=== PATIENT | female | born 1990 | race Caucasian/White ===

== ENCOUNTER 2016-02-27 08:01 | Outpatient (CLI) ==
[2016-01-01 13:04] VITALS: BMI 26.4
[2016-02-27 08:36] LABS: GTT FASTING URINE NEGATIVE (NEGATIVE)
[2016-02-27 08:40] LABS: GLUCOSE,FASTING 79 mg/dL (70-121)
[2016-02-27 10:09] LABS: GLUCOSE 30 MINUTE 139 mg/dL (70-121)
[2016-02-27 10:22] LABS: GLUCOSE 30 MINUTE URINE NEGATIVE (NEGATIVE)
[2016-02-27 10:52] LABS: GLUCOSE 2 HR URINE NEGATIVE (NEGATIVE)
[2016-02-27 11:46] LABS: GLUCOSE 3 HOUR URINE NEGATIVE (NEGATIVE)
== END 2016-02-27 08:02 | disposition home or self-care (01) ==
LOC: LAB 08:01
PROVIDERS: ATTEND Obstetrics & Gynecology
DX: O99.810 Abnormal glucose complicating pregnancy (principal)
CPT/HCPCS: 36415; 82951

== ENCOUNTER 2016-08-19 22:57 | Emergency (ER) ==
[2016-08-19 23:04] VITALS: BP 118/78; TEMP 98.7; BMI 24.3
[2016-08-19] MEDS ORDERED: MORPHINE 2 MG/ML SYRINGE IM STA (23:14)
[2016-08-19] MEDS ORDERED: ZOFRAN 4 MG/2 ML IM STA (23:14)
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
[2016-08-19 23:20] LABS: URINE PREGNANCY INTERNAL QC INTERNAL QC VALID
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
== END 2016-08-20 01:00 | disposition home or self-care (01) ==
LOC: ED 22:57
DX: S59.911A Unspecified injury of right forearm, initial encounter (principal); S09.90XA Unspecified injury of head, initial encounter; S80.211A Abrasion, right knee, initial encounter; S00.83XA Contusion of other part of head, initial encounter; V86.99XA Unspecified occupant of other special all-terrain or other off-road motor vehicle injured in nontraffic accident, initial encounter; F17.210 Nicotine dependence, cigarettes, uncomplicated
CPT/HCPCS: 81025; 96372; 99283

== ENCOUNTER 2016-10-01 16:19 | Outpatient (CLI) | END 2016-10-01 16:20 | disposition home or self-care (01) | LOC: LAB 16:19 | PROVIDERS: ATTEND Nurse Practitioner Family | DX: Z20.2 Contact with and (suspected) exposure to infections with a predominantly sexual mode of transmission (principal) | CPT/HCPCS: 87800 ==

== ENCOUNTER 2016-10-31 10:25 | Emergency (ER) ==
[2016-10-31 10:35] VITALS: BP 121/86; TEMP 99; BMI 23.6
[2016-10-31] MEDS ORDERED: TORADOL IM STA (10:56)
[2016-10-31 11:18] LABS: BASOPHILS % (AUTO) 0.3 % (0.0-3.0); EOSINOPHILS # (AUTO) 0.2 K/ul (0.0-0.7); HEMATOCRIT 37.2 % (37.0-47.0); HEMOGLOBIN 12.8 g/dl (12.0-16.0); IMMATURE GRANULOCYTE % (AUTO) 0.4 % (0.0-5.0); LYMPHOCYTES # (AUTO) 3.9 K/uL (0.60-3.4); LYMPHOCYTES % (AUTO) 33.1 (10.0-50.0); MEAN CORPUSCULAR HEMOGLOBIN 30.1 pg (27.0-31.0); MEAN CORPUSCULAR HGB CONC 34.4 (31.8-35.4); MEAN CORPUSCULAR VOLUME 87.5 fl (81.0-99.0); MONOCYTES # (AUTO) 0.6 K/uL (0.4-2.0); NEUTROPHILS # (AUTO) 6.9 K/ul (2.0-6.9); NEUTROPHILS % (AUTO) 59.2; PLATELET COUNT 179 10^3/uL (140-440); RED BLOOD COUNT 4.25 10^6/ul (4.20-5.40)
[2016-10-31 11:22] LABS: BILIRUBIN,URINE Negative (NEGATIVE); KETONES,URINE Negative (NEGATIVE); LEUKOCYTE ESTERASE ,URINE Negative (NEGATIVE); NITRITE,URINE Negative (NEGATIVE); PROTEIN,URINE Negative (NEGATIVE); URINE, BLOOD Negative (NEGATIVE)
[2016-10-31 11:24] LABS: ADD URINE MICROSCOPIC NO
[2016-10-31 11:31] LABS: URINE PREGNANCY INTERNAL QC INTERNAL QC VALID
[2016-10-31 11:41] LABS: ALBUMIN 3.8 g/dL (3.4-5.0); ALBUMIN/GLOBULIN RATIO 1.36; ANION GAP 12.7; BILIRUBIN,TOTAL 1.65 mg/dL (0.00-1.20); BUN/CREATININE RATIO 15.18; CREATININE 0.79 mg/dL (0.60-1.30); POTASSIUM 3.7 mmol/L (3.5-5.10); TOTAL PROTEIN 6.6 g/dL (6.4-8.2)
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
--- NOTE | 2016-10-31 12:42 | ED.PDOC ---
General ED Provider: Dr. FELY CASILLAS Chief Complaint: Back Pain Stated Complaint: left flank pain Time Seen by Physician: 10:30 (no trauma seen with enedelia villa RN at all times) Mode of Arrival: Walk-In Information Source: Patient Exam Limitations: No limitations Nursing and Triage Documentation Reviewed and Agree: Yes Musculoskeletal Complaint Exam - Back Pain Complaint/Exam Mechanism of Injury: Reports: No known trauma, Other (NURSE AT BEDSIDE AT ALL TIMES ) Onset/Duration: 2 days Symptoms Are: Still present Timing: Constant Episodes Lasting: Days Initial Severity: Mild Current Severity: Mild Location: Reports: Discrete Character: Reports: Aching Aggravating: Reports: Movements, Lifting, Bending, Walking Alleviating: Reports: Position Associated Signs and Symptoms: Reports: Flank pain (LEFT). Denies: Swelling, Redness, Bruising, Fever, Weakness, Numbness, Tingling, Abdominal pain, Bladder incontinence, Bowel incontinence, Weight loss, Pain with weight bearing TAD Risk Factors: Reports: None AAA Risk Factors: Reports: None Cauda Equina Risk Factors: Reports: None Epidural Abcess Risk Factors: Reports: None Related Surgical History: Reports: None Focal Tenderness: No Paraspinal Muscle Tenderness: No Paraspinal Muscle Spasm: No Scoliosis: No Lordosis: No Kyphosis: No SLR Test: Right Negative, Left Negative Hip Motion Testing Pain: Right Negative, Left Negative Focal Weakness: Present: None Focal Sensory Loss: Present: None Gait: Present: Normal Differential Diagnoses: Strain, Sprain Review of Systems - Review Of Systems Constitutional: Reports: No symptoms Eyes: Reports: No symptoms Ears, Nose, Mouth, Throat: Reports: No symptoms Respiratory: Reports: No symptoms Cardiac: Reports: No symptoms GI: Reports: No symptoms : Reports: No symptoms Musculoskeletal: Reports: Back pain Skin: Reports: No symptoms Neurological: Reports: No symptoms Endocrine: Reports: No symptoms Hematologic/Lymphatic: Reports: No symptoms All Other Systems: Reviewed and Negative Past Medical History - Past Medical History Previously Healthy: Yes Endocrine: Reports: None Cardiovascular: Reports: None Respiratory: Reports: None Hematological: Reports: None Gastrointestinal: Reports: Gallstones Genitourinary: Reports: None Neuro/Psych: Reports: Migraine, Other (Sycope ) Musculoskeletal: Reports: None Cancer: Reports: None Last Menstrual Period: 2 weeks - Surgical History General Surgical History: Reports: Cholecystectomy - Family History Family History: Reports: None - Social History Smoking Status: Current some day smoker Hx Substance Use: No Alcohol Screening: None - Immunizations Tetanus Shot up to Date: Yes Physical Exam - Physical Exam Appearance: Well-appearing, No pain distress, Well-nourished Eyes: FLETCHER, EOMI, Conjunctiva clear ENT: Ears normal, Nose normal, Oropharynx normal Respiratory: Airway patent, Breath sounds clear, Breath sounds equal, Respirations nonlabored Cardiovascular: RRR, Pulses normal, No rub, No murmur GI/: Soft, Nontender, No masses, Bowel sounds normal, No Organomegaly Musculoskeletal: Normal strength, ROM intact, No edema, No calf tenderness Skin: Warm, Dry, Normal color Neurological: Sensation intact, Motor intact, Reflexes intact, Cranial nerves intact, Alert, Oriented Psychiatric: Affect appropriate, Mood appropriate Interpretation - Radiology Interpretation Radiology Interpretation By: Radiologist Radiology Results: No acute changes Re-Evaluation - Re-Evaluation Time of Re-Evaluation: 12:00 Status: Improved Vital Signs Stable: Yes Pain Level: 2 Appearance: NAD Lungs: Clear Skin: Warm and Dry Neuro: Alert and Oriented X3 CV: RRR Critical Care Note - Critical Care Note Total Time (mins): 0 Course - Course Hematology/Chemistry: 10/31/16 11:10 10/31/16 11:10 Orders, Labs, Meds: Lab Review 10/31/16 10/31/16 10/31/16 11:10 11:10 11:10 WBC 11.70 H RBC 4.25 Hgb 12.8 Hct 37.2 MCV 87.5 MCH 30.1 MCHC 34.4 RDW Coeff of Nettie 12.4 Plt Count 179 Immature Gran % (Auto) 0.4 Neut % (Auto) 59.2 Lymph % (Auto) 33.1 Dare % (Auto) 5.0 Eos % (Auto) 2.0 Baso % (Auto) 0.3 Immature Gran # (Auto) 0.1 Neut # 6.9 Lymph # 3.9 H Dare # 0.6 Eos # 0.2 Baso # 0.0 Sodium 140 Potassium 3.7 Chloride 110 H Carbon Dioxide 21 Anion Gap 12.7 BUN 12 Creatinine 0.79 Estimated GFR (MDRD) 89.00 BUN/Creatinine Ratio 15.18 Glucose 87 Calcium 9.0 Total Bilirubin 1.65 H AST 12 L ALT 12 Alkaline Phosphatase 69 Total Protein 6.6 Albumin 3.8 Globulin 2.8 Albumin/Globulin Ratio 1.36 Urine Color Yellow Urine Clarity Clear Urine pH 6.0 Ur Specific [place] 1.025 Urine Protein Negative Urine Glucose (UA) Negative Urine Ketones Negative Urine Blood Negative Urine Nitrite Negative Urine Bilirubin Negative Urine Urobilinogen 1.0 Ur Leukocyte Esterase Negative Urine Test 10/31/16 11:10 WBC RBC Hgb Hct MCV MCH MCHC RDW Coeff of Nettie Plt Count Immature Gran % (Auto) Neut % (Auto) Lymph % (Auto) Dare % (Auto) Eos % (Auto) Baso % (Auto) Immature Gran # (Auto) Neut # Lymph # Dare # Eos # Baso # Sodium Potassium Chloride Carbon Dioxide Anion Gap BUN Creatinine Estimated GFR (MDRD) BUN/Creatinine Ratio Glucose Calcium Total Bilirubin AST ALT Alkaline Phosphatase Total Protein Albumin Globulin Albumin/Globulin Ratio Urine Color Urine Clarity Urine pH Ur Specific [place] Urine Protein Urine Glucose (UA) Urine Ketones Urine Blood Urine Nitrite Urine Bilirubin Urine Urobilinogen Ur Leukocyte Esterase Urine Test Negative Orders Category Date Time Status CBC W/ AUTO DIFF Stat LAB 10/31/16 11:10 Completed COMPREHENSIVE METABOLIC PANEL Stat LAB 10/31/16 11:10 Completed URINALYSIS C & S IF INDICATED Stat LAB 10/31/16 11:10 Completed URINE Stat LAB 10/31/16 11:10 Completed Ketorolac Tromethamine [Toradol] MEDS 10/31/16 10:56 Discontinued 60 mg IM ONCE STA CT ABDOMEN/PELVIS WO CONTRAST Stat RADS 10/31/16 10:55 Completed Medications Discontinued Medications Generic Name Dose Route Start Last Admin Trade Name Freq PRN Reason Stop Dose Admin Ketorolac Tromethamine 60 mg 10/31/16 10:56 10/31/16 11:03 Toradol IM 10/31/16 10:57 60 mg ONCE STA Administration Vital Signs: Temp Pulse Resp BP Pulse Ox 10/31/16 10:29 99 F 95 H 16 121/86 97 Departure - Departure Time of Disposition: 12:42 (INFORMED ABOUT THE CT AND BLOOD WORK AT DISCHARGE ALISA WAS PRESENT) Disposition: HOME SELF-CARE Discharge Problem: Backache Instructions: Acute Low Back Pain (ED) Condition: Good Pt referred to PMD for follow-up: Yes Additional Instructions: Please call your Family Physician as soon as possible to schedule a follow-up appointment. Allergies/Adverse Reactions: Allergies No Known Allergies Allergy (Verified 10/31/16 10:41) Home Medications: Ambulatory Orders Etonogestrel [Nexplanon] 68 mg SQ ONCE 08/19/16
== END 2016-10-31 12:53 | disposition home or self-care (01) ==
LOC: ED 10:25
DX: M54.9 Dorsalgia, unspecified (principal); R10.9 Unspecified abdominal pain; F17.210 Nicotine dependence, cigarettes, uncomplicated
CPT/HCPCS: 36415; 80053; 81001; 81025; 85025; 96372; 99283

== ENCOUNTER 2016-12-24 13:46 | Emergency (ER) ==
[2016-12-24 13:51] VITALS: BP 121/80; TEMP 100.2; BMI 24.1
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
[2016-12-24 15:00] LABS: FLU INTERNAL QC INTERNAL QC VALID; RAPID FLU A NEGATIVE (NEGATIVE); RAPID FLU B NEGATIVE (NEGATIVE)
== END 2016-12-24 15:18 | disposition home or self-care (01) ==
LOC: ED 13:46
DX: M25.531 Pain in right wrist (principal); J02.9 Acute pharyngitis, unspecified; F17.210 Nicotine dependence, cigarettes, uncomplicated
CPT/HCPCS: 87651; 87804; 87880; 99283

== ENCOUNTER 2017-01-13 10:11 | Emergency (ER) ==
[2017-01-13 10:16] VITALS: BP 116/81; TEMP 97.7; BMI 24.0
[2017-01-13] MEDS ORDERED: DILAUDID 2 MG/ML SYRINGE IM STA (10:39)
[2017-01-13] MEDS ORDERED: ZOFRAN 4 MG/2 ML IM STA (10:40)
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
== END 2017-01-13 11:17 | disposition home or self-care (01) ==
LOC: ED 10:11
DX: M54.5 Low back pain (principal); F17.210 Nicotine dependence, cigarettes, uncomplicated; X50.1XXA Overexertion from prolonged static or awkward postures, initial encounter
CPT/HCPCS: 96372; 99283

== ENCOUNTER 2017-01-16 12:21 | Outpatient (CLI) ==
--- NOTE | 2017-01-16 14:13 | DI ---
Exam: Three x-rays of the thoracic spine. Comparison: CT abdomen pelvis performed 10/31/2016. Reason for exam: Pain in thoracic spine. FINDINGS: No acute fracture or listhesis. There is a normal appearing thoracic kyphotic curve. The superiormost portions of the thoracic and inferior most portions of the cervical spine are not well seen secondary to summation artifact. Impression: No acute fracture or listhesis in the imaged portions of the thoracic spine
--- NOTE | 2017-01-16 14:15 | DI ---
Exam: Five x-rays of the lumbar spine. Comparison: CT abdomen pelvis performed 10/31/2016. Reason for exam: Low back pain. Finding: No acute fracture or listhesis. The vertebral body and intervertebral body disc space heights are we ll maintained. There is a normal appearing lumbar lordotic curve. Impression: No acute fracture or listhesis in the lumbar spine.
== END 2017-01-16 12:22 | disposition home or self-care (01) ==
LOC: RAD 12:21
PROVIDERS: ATTEND Nurse Practitioner Family
DX: M54.6 Pain in thoracic spine (principal); M54.5 Low back pain

== ENCOUNTER 2017-02-09 15:04 | Emergency (ER) ==
[2017-02-09 15:14] VITALS: BP 114/79; TEMP 98.2; BMI 23.6
[2017-02-09] MEDS ORDERED: NORCO 7.5-325 PO STA (15:19)
[2017-02-09] MEDS ORDERED: DOXYCYCLINE HYCLATE PO STA (15:19)
--- NOTE | 2017-02-09 15:23 | ED.PDOC ---
General ED Provider: Dr. AQUILINO MATHEW-ER Chief Complaint: Non-specific Complaint Stated Complaint: i had my belly button pierced a few days ago--now is red and draining Time Seen by Physician: 15:10 Mode of Arrival: Walk-In Information Source: Patient Exam Limitations: No limitations Primary Care Provider: JOSE C [facility] Nursing and Triage Documentation Reviewed and Agree: Yes Reviewed sepsis parameters & appropriate labs ordered?: Yes System Inflammatory Response Syndrome: Not Applicable Sepsis Protocol: For patient's 13 years and over: Temp is 96.8 and below OR 101 and greater Pulse >90 BPM Resp >20/minute Acutely Altered Mental Status Are patient's symptoms suggestive of a new infection, such as: -Pneumonia -Skin, Soft Tissue -Endocarditis -UTI -Bone, Joint Infection -Implantable Device -Acute Abdominal Infection -Wound Infection -Meningitis -Blood Stream Catheter Infection -Unknown Skin Complaint Exam - Skin/Soft Tissue Complaint/Exam Onset/Duration: 24 hrs Symptoms Are: Still present Timing: Constant Initial Severity: Mild Current Severity: Mild Location: periumbilical Character: Reports: Redness, Painful Aggravating: Reports: None Alleviating: Reports: None Associated Signs and Symptoms: Reports: Drainage, Tenderness. Denies: Fever, Chills, Itching, Bruising, Red streaks, Joint swelling Related Surgical History: Reports: None Recent Exposure to Others w/Similar Symptoms: Yes Skin Findings: Present: Erythema, Pustules Joint Tenderness Present: No Differential Diagnoses: Abscess, Cellulitis Review of Systems - Review Of Systems Constitutional: Reports: No symptoms Eyes: Reports: No symptoms Ears, Nose, Mouth, Throat: Reports: No symptoms Respiratory: Reports: No symptoms Cardiac: Reports: No symptoms GI: Reports: No symptoms : Reports: No symptoms Musculoskeletal: Reports: No symptoms Skin: Reports: Rash Neurological: Reports: No symptoms Endocrine: Reports: No symptoms Hematologic/Lymphatic: Reports: No symptoms All Other Systems: Reviewed and Negative Past Medical History - Past Medical History Previously Healthy: Yes Endocrine: Reports: None Cardiovascular: Reports: None Respiratory: Reports: None Hematological: Reports: None Gastrointestinal: Reports: Gallstones Genitourinary: Reports: None Neuro/Psych: Reports: Migraine, Other (Sycope ) Musculoskeletal: Reports: None Cancer: Reports: None Last Menstrual Period: 1 day - Surgical History General Surgical History: Reports: Cholecystectomy - Family History Family History: Reports: None - Social History Smoking Status: Current some day smoker Hx Substance Use: No Alcohol Screening: None Lives: With family Physical Exam - Physical Exam Appearance: Well-appearing, No pain distress, Well-nourished Eyes: FLETCHER ENT: Ears normal, Nose normal, Oropharynx normal Neck: Supple Respiratory: Airway patent, Breath sounds clear, Breath sounds equal, Respirations nonlabored Cardiovascular: RRR, Pulses normal, No rub, No murmur GI/: Soft, Nontender, No masses, Bowel sounds normal, No Organomegaly Musculoskeletal: Normal strength, ROM intact, No edema, No calf tenderness Skin: Warm, Dry, Normal color Neurological: Sensation intact, Motor intact, Reflexes intact, Cranial nerves intact, Alert, Oriented Psychiatric: Affect appropriate, Mood appropriate Critical Care Note - Critical Care Note Total Time (mins): 0 Course - Course Orders, Labs, Meds: Orders Category Date Time Status WOUND CULTURE Stat LAB 02/09/17 15:40 Received Doxycycline Hyclate MEDS 02/09/17 15:19 Discontinued 100 mg PO ONCE STA Hydrocodone Bit/Acetaminophen [[place] 7.5-325] MEDS 02/09/17 15:19 Discontinued 1 tab PO ONCE STA Medications Discontinued Medications Generic Name Dose Route Start Last Admin Trade Name Freq PRN Reason Stop Dose Admin Acetaminophen/Hydrocodone Bitart 1 tab 02/09/17 15:19 02/09/17 15:24 [place] 7.5-325 PO 02/09/17 15:20 1 tab ONCE STA Administration Doxycycline Hyclate 100 mg 02/09/17 15:19 02/09/17 15:24 Doxycycline Hyclate PO 02/09/17 15:20 100 mg ONCE STA Administration Vital Signs: Temp Pulse Resp BP Pulse Ox 02/09/17 15:05 98.2 F 78 20 114/79 98 Departure - Departure Time of Disposition: 15:22 Disposition: HOME SELF-CARE Discharge Problem: Cellulitis Qualifiers: Site of cellulitis: trunk Site of cellulitis of trunk: abdominal wall Qualified Code(s): L03.311 - Cellulitis of abdominal wall Instructions: Cellulitis (ED) Condition: Good Pt referred to PMD for follow-up: Yes Additional Instructions: doxycycline 100mg q 12hrs #14--off work--f/u wtih pcp this week for recheck of infection and check on culture results Allergies/Adverse Reactions: Allergies No Known Allergies Allergy (Verified 01/13/17 10:15) Home Medications: Ambulatory Orders Etonogestrel [Nexplanon] 68 mg SQ ONCE 08/19/16 Disposition Discussed With: Patient
== END 2017-02-09 15:39 | disposition home or self-care (01) ==
LOC: ED 15:04
DX: L03.311 Cellulitis of abdominal wall (principal); S31.135A Puncture wound of abdominal wall without foreign body, periumbilic region without penetration into peritoneal cavity, initial encounter; W26.8XXA Contact with other sharp object(s), not elsewhere classified, initial encounter; F17.210 Nicotine dependence, cigarettes, uncomplicated
CPT/HCPCS: 87070; 87186; 99282

== ENCOUNTER 2017-09-21 09:13 | Emergency (ER) | payer MEDICAID, OTHER ==
[2017-09-21 09:16] VITALS: BP 120/75; TEMP 98.2; BMI 24.3
--- NOTE | 2017-09-21 09:29 | ED.PDOC ---
General ED Provider: Dr. FELY CASILLAS Chief Complaint: Headache Stated Complaint: headache Time Seen by Physician: 09:19 (seen with NURSING STAFF) Mode of Arrival: Walk-In Information Source: Patient Exam Limitations: No limitations [facility] Documentation Reviewed and Agree: Yes Does patient meet sepsis criteria?: No If yes, has appropriate treatment been initiated?: No System Inflammatory Response Syndrome: Not Applicable Sepsis Protocol: For patient's 13 years and over: Temp is 96.8 and below OR 101 and greater Pulse >90 BPM Resp >20/minute Acutely Altered Mental Status Are patient's symptoms suggestive of a new infection, such as: -Pneumonia -Skin, Soft Tissue -Endocarditis -UTI -Bone, Joint Infection -Implantable Device -Acute Abdominal Infection -Wound Infection -Meningitis -Blood Stream Catheter Infection -Unknown Neurological Complaint Exam - Headache Complaint/Exam Onset: Gradual Duration: 1 DAY Symptoms Are: Still present Timing: Intermittent Episodes Lasting: Hours Worst Headache Ever: No Initial Severity: Moderate Current Severity: Mild Location: Frontal, Temporal Character: Reports: Typical headache Aggravating: Reports: None Alleviating: Reports: None Associated Signs and Symptoms: Denies: Dizziness, Seizure, Nausea, Vomiting, Sinus pressure, Fever, Neck pain, Neck stiffness, Decreased LOC, Visual changes Related History: Reports: Similar episode Related Surgical History: Reports: None SAH Risk Factors: Reports: None Meningitis Risk Factors: Reports: None SDH Risk Factors: Reports: None Temporal Arteritis Risk Factors: Reports: Female, Normal Head CT Within Last 12 Months: No Fundoscopic Exam: Present: Normal Findings Papilledema Present: No Temporal Artery Tenderness: Present: None Sinus Tenderness: Present: None TMJ Tenderness: Present: None Glascow Coma Scale (see protocol): 15 Meningeal Signs Positive: No ROM Limited In: No Limitiations Focal Weakness: Present: None Focal Sensory Loss: Present: None Gait: Normal Nystagmus Present: No Gag Reflex Present: Yes Frsmof-is-Gowm: Normal Findings Romberg Test Positive: No Babinski Sign: Negative Right, Negative Left Differential Diagnoses: Migraine Review of Systems - Review Of Systems Constitutional: Reports: No symptoms Eyes: Reports: No symptoms Ears, Nose, Mouth, Throat: Reports: No symptoms Respiratory: Reports: No symptoms Cardiac: Reports: No symptoms GI: Reports: No symptoms : Reports: No symptoms Musculoskeletal: Reports: No symptoms Skin: Reports: No symptoms Neurological: Reports: Headache Endocrine: Reports: No symptoms Hematologic/Lymphatic: Reports: No symptoms All Other Systems: Reviewed and Negative Past Medical History - Past Medical History Previously Healthy: Yes Endocrine: Reports: None Cardiovascular: Reports: None Respiratory: Reports: None Hematological: Reports: None Gastrointestinal: Reports: Gallstones Genitourinary: Reports: None Neuro/Psych: Reports: Migraine, Other (Sycope ) Musculoskeletal: Reports: None Cancer: Reports: None Last Menstrual Period: 09/21/17 - Surgical History General Surgical History: Reports: Cholecystectomy - Family History Family History: Reports: None - Social History Smoking Status: Current some day smoker Hx Substance Use: No Alcohol Screening: None Physical Exam - Physical Exam Appearance: Well-appearing, No pain distress, Well-nourished Eyes: FLETCHER, EOMI, Conjunctiva clear ENT: Ears normal, Nose normal, Oropharynx normal Respiratory: Airway patent, Breath sounds clear, Breath sounds equal, Respirations nonlabored Cardiovascular: RRR, Pulses normal, No rub, No murmur GI/: Soft, Nontender, No masses, Bowel sounds normal, No Organomegaly Musculoskeletal: Normal strength, ROM intact, No edema, No calf tenderness Skin: Warm, Dry, Normal color Neurological: Sensation intact, Motor intact, Reflexes intact, Cranial nerves intact, Alert, Oriented Psychiatric: Affect appropriate, Mood appropriate Critical Care Note - Critical Care Note Total Time (mins): 0 Course - Course Vital Signs: Temp Pulse Resp BP Pulse Ox 09/21/17 09:14 98.2 F 71 18 120/75 98 Departure - Departure Time of Disposition: 09:28 Disposition: HOME SELF-CARE Discharge Problem: Headache Instructions: Acute Headache (ED) Condition: Good Pt referred to PMD for follow-up: Yes IPMP verified?: No Additional Instructions: Please call your Family Physician as soon as possible to schedule a follow-up appointment. Prescriptions: Hydrocodone/Acetaminophen [[place] 10-325 Tablet] 1 each PO Q8HR #4 tablet Allergies/Adverse Reactions: Allergies No Known Allergies Allergy (Verified 09/21/17 09:17) Home Medications: Ambulatory Orders Etonogestrel [Nexplanon] 68 mg SQ ONCE 08/19/16 Hydrocodone/Acetaminophen [[place] 10-325 Tablet] 1 each PO Q8HR #4 tablet Disposition Discussed With: Patient
== END 2017-09-21 09:45 | disposition home or self-care (01) ==
LOC: ED 09:13
DX: R51 Headache (principal); F17.210 Nicotine dependence, cigarettes, uncomplicated
CPT/HCPCS: 99282

== ENCOUNTER 2017-12-26 07:24 | Emergency (ER) ==
[2017-12-26 07:29] VITALS: BP 136/77; TEMP 99.3; BMI 23.8
[2017-12-26] MEDS ORDERED: TORADOL IM STA (07:48)
--- NOTE | 2017-12-26 09:07 | CT ---
EXAM: CT abdomen pelvis without contrast HISTORY: Epigastric pain most pronounced on the right with prior cholecystectomy COMPARISON: CT abdomen pelvis 10/31/2016 and 01/15/2015 TECHNIQUE: Serial axial images of the abdomen pelvis were performed from the lung bases through the inferior pelvis without contrast. These were viewed in multiple planes. FINDINGS: The lung bases are clear. Evaluation is limited due to lack of contrast. The liver is unremarkable. The gallbladder has been resected. Adrenal glands are unremarkable. The kidneys are unremarkable. There is no hydronephrosi s or hydroureter. The spleen is unremarkable. The pancreas is normal. The stomach is mildly distended. The small bowel in the abdomen pelvis is unremarkable. The appendi x is normal. The colon is unremarkable. There is no free air, free fluid or lymphadenopathy. The u terus is unremarkable. The ovaries are normal in appearance. The osseous structures are unremarkabl e. IMPRESSION: 1. No acute intra-abdominal or pelvic process to account for patient's symptoms. 2. No obstructive uropathy or visualized renal stone.
--- NOTE | 2017-12-26 09:46 | ED.PDOC ---
General ED Provider: Dr. FELY CASILLAS Chief Complaint: Abdominal Pain Stated Complaint: ABDOMINAL PAIN Time Seen by Physician: 07:30 (SEEN WITH KYLAH AT ALL TIMES ) Mode of Arrival: Walk-In Information Source: Patient Exam Limitations: No limitations Primary Care Provider: SOFIE NOVA Nursing and Triage Documentation Reviewed and Agree: Yes Does patient meet sepsis criteria?: No System Inflammatory Response Syndrome: Not Applicable Sepsis Protocol: For patient's 13 years and over: Temp is 96.8 and below OR 101 and greater Pulse >90 BPM Resp >20/minute Acutely Altered Mental Status Are patient's symptoms suggestive of a new infection, such as: -Pneumonia -Skin, Soft Tissue -Endocarditis -UTI -Bone, Joint Infection -Implantable Device -Acute Abdominal Infection -Wound Infection -Meningitis -Blood Stream Catheter Infection -Unknown GI Complaint Exam - Abdominal Pain Complaint/Exam Onset: Gradual Duration: 3 AM Symptoms Are: Still present Timing: Constant Initial Severity: Moderate Current Severity: Moderate Location of Pain: LUQ, Epigastric Radiates To: Denies: Chest, Back, Flank, LLQ, RLQ, Inguinal Character: Reports: Dull Aggravating: Reports: None Alleviating: Reports: None Associated Signs and Symptoms: Denies: Diaphoresis, Fever, Cough, Chest pain, Dizziness, Back pain, Constipation, Blood in stool, Dysuria, Urinary frequency, Decreased urine output, Decreased appetite, Vaginal bleeding, Vaginal discharge , Nausea, Vomiting, Diarrhea, Sore throat, Decreased activity Related History: Reports: Similar episode AAA Risk Factors: Reports: None Cardiac Risk Factors: Reports: None Ectopic Risk Factors: Reports: None Ovarian Torsion Risk Factors: Reports: None Surgical Obstruction Risk Factors: Reports: None Related Surgical History: Reports: None Patient Rh Status: Unknown Abdominal Findings: Present: None Differential Diagnoses: Appendicitis, Bowel Obstruction, Constipation, Diverticulitis, Gastroenteritis, Renal Colic, Ureteral Stone, UTI Quality Indicators for AMI: EKG in 10min. Quality Indicators for Cardiac Chest Pain: EKG in 10min. Quality Indicator For Non-Traumatic Chest Pain/Syncope: EKG Performed Review of Systems - Review Of Systems Constitutional: Reports: No symptoms Eyes: Reports: No symptoms Ears, Nose, Mouth, Throat: Reports: No symptoms Respiratory: Reports: No symptoms Cardiac: Reports: No symptoms GI: Reports: Abdominal pain : Reports: No symptoms Musculoskeletal: Reports: No symptoms Skin: Reports: No symptoms Neurological: Reports: No symptoms Endocrine: Reports: No symptoms Hematologic/Lymphatic: Reports: No symptoms All Other Systems: Reviewed and Negative Past Medical History - Past Medical History Previously Healthy: Yes Endocrine: Reports: None Cardiovascular: Reports: None Respiratory: Reports: None Hematological: Reports: None Gastrointestinal: Reports: Gallstones Genitourinary: Reports: None Neuro/Psych: Reports: Migraine, Other (Sycope ) Musculoskeletal: Reports: None Cancer: Reports: None Last Menstrual Period: 2 weeks ago - Surgical History General Surgical History: Reports: Cholecystectomy - Family History Family History: Reports: None - Social History Smoking Status: Current some day smoker Hx Substance Use: No Alcohol Screening: None Physical Exam - Physical Exam Appearance: Well-appearing, No pain distress, Well-nourished Eyes: FLETCHER, EOMI, Conjunctiva clear ENT: Ears normal, Nose normal, Oropharynx normal Respiratory: Airway patent, Breath sounds clear, Breath sounds equal, Respirations nonlabored Cardiovascular: RRR, Pulses normal, No rub, No murmur GI/: Soft, Nontender, No masses, Bowel sounds normal, No Organomegaly Musculoskeletal: Normal strength, ROM intact, No edema, No calf tenderness Skin: Warm, Dry, Normal color Neurological: Sensation intact, Motor intact, Reflexes intact, Cranial nerves intact, Alert, Oriented Psychiatric: Affect appropriate, Mood appropriate Critical Care Note - Critical Care Note Total Time (mins): 0 Course - Course Hematology/Chemistry: 12/26/17 08:00 12/26/17 08:00 Orders, Labs, Meds: Lab Review 12/26/17 12/26/17 12/26/17 08:00 08:00 08:00 WBC 8.56 RBC 4.04 L Hgb 12.2 Hct 35.8 L MCV 88.6 MCH 30.2 MCHC 34.1 RDW Coeff of Nettie 12.4 Plt Count 161 Immature Gran % (Auto) 0.2 Neut % (Auto) 56.7 Lymph % (Auto) 34.3 [place] % (Auto) 5.8 Eos % (Auto) 2.8 Baso % (Auto) 0.2 Immature Gran # (Auto) 0.0 Neut # (Auto) 4.8 Lymph # (Auto) 2.9 [place] # (Auto) 0.5 Eos # (Auto) 0.2 Baso # (Auto) 0.0 Sodium 138.0 Potassium 3.92 Chloride 107.9 H Carbon Dioxide 26.5 Anion Gap 7.52 BUN 13.2 Creatinine 0.76 Estimated GFR (MDRD) 93.00 BUN/Creatinine Ratio 17.36 Glucose 97.5 Calcium 8.64 Total Bilirubin 0.67 AST 24.3 ALT 15.4 Alkaline Phosphatase 57.6 Total Protein 6.43 Albumin 3.83 Globulin 2.60 Albumin/Globulin Ratio 1.47 Amylase 58.6 Lipase 47.5 Serum , Qual Negative Urine Color Urine Clarity Urine pH Ur Specific [place] Urine Protein Urine Glucose (UA) Urine Ketones Urine Blood Urine Nitrite Urine Bilirubin Urine Urobilinogen Ur Leukocyte Esterase 12/26/17 08:00 WBC RBC Hgb Hct MCV MCH MCHC RDW Coeff of Nettie Plt Count Immature Gran % (Auto) Neut % (Auto) Lymph % (Auto) [place] % (Auto) Eos % (Auto) Baso % (Auto) Immature Gran # (Auto) Neut # (Auto) Lymph # (Auto) [place] # (Auto) Eos # (Auto) Baso # (Auto) Sodium Potassium Chloride Carbon Dioxide Anion Gap BUN Creatinine Estimated GFR (MDRD) BUN/Creatinine Ratio Glucose Calcium Total Bilirubin AST ALT Alkaline Phosphatase Total Protein Albumin Globulin Albumin/Globulin Ratio Amylase Lipase Serum , Qual Urine Color Yellow Urine Clarity Clear Urine pH 5.5 Ur Specific [place] 1.025 Urine Protein Negative Urine Glucose (UA) Negative Urine Ketones Negative Urine Blood Negative Urine Nitrite Negative Urine Bilirubin Negative Urine Urobilinogen 0.2 Ur Leukocyte Esterase Negative Orders Category Date Time Status AMYLASE Stat LAB 12/26/17 08:00 Completed CBC W/ AUTO DIFF Stat LAB 12/26/17 08:00 Completed COMPREHENSIVE METABOLIC PANEL Stat LAB 12/26/17 08:00 Completed LIPASE Stat LAB 12/26/17 08:00 Completed SERUM Stat LAB 12/26/17 08:00 Completed URINALYSIS C & S IF INDICATED Stat LAB 12/26/17 08:00 Completed Ketorolac Tromethamine [Toradol] MEDS 12/26/17 07:48 Discontinued 60 mg IM ONCE STA CT ABD/PEL WO RENAL STONE PROT Stat RADS 12/26/17 07:46 Completed Medications Discontinued Medications Generic Name Dose Route Start Last Admin Trade Name Freq PRN Reason Stop Dose Admin Ketorolac Tromethamine 60 mg 12/26/17 07:48 12/26/17 08:01 Toradol IM 12/26/17 07:49 60 mg ONCE STA Administration Vital Signs: Temp Pulse Resp BP Pulse Ox 12/26/17 07:25 99.3 F 97 H 20 136/77 95 Departure - Departure Time of Disposition: 09:46 Disposition: HOME SELF-CARE Discharge Problem: Abdominal pain Instructions: Abdominal Pain (ED) Condition: Good Pt referred to PMD for follow-up: Yes IPMP verified?: No Additional Instructions: Please call your Family Physician as soon as possible to schedule a follow-up appointment. Allergies/Adverse Reactions: Allergies No Known Allergies Allergy (Verified 12/26/17 07:29) Home Medications: Ambulatory Orders Etonogestrel [Nexplanon] 68 mg SQ ONCE 08/19/16
== END 2017-12-26 10:01 | disposition home or self-care (01) ==
LOC: ED 07:24
DX: R10.9 Unspecified abdominal pain (principal); F17.210 Nicotine dependence, cigarettes, uncomplicated
CPT/HCPCS: 36415; 74176; 80053; 81001; 82150; 83690; 84703; 85025; 96372; 99283

== ENCOUNTER 2018-05-14 19:30 | Emergency (ER) ==
[2018-05-14 19:34] VITALS: BP 128/83; TEMP 98.6; BMI 24.3
[2018-05-14] MEDS ORDERED: LACTATED RINGERS 1,000 ML IV STA (19:40)
[2018-05-14] MEDS ORDERED: ZOFRAN 4 MG/2 ML IVP STA (19:40)
--- NOTE | 2018-05-14 19:40 | ED.PDOC ---
General ED Provider: Dr. RITCHIE RODRIGEUZ Chief Complaint: Abdominal Pain Stated Complaint: Patient is a 27 year old female who comes to the ER with c/o abdominal pain, N/V/D since yesterday. States that at work she was exposed to others employees with similar complaints. Pain was at 7 earlier today and now 4/ 10 Time Seen by Physician: 19:39 Mode of Arrival: Walk-In Information Source: Patient Primary Care Provider: SOFIE NOVA Nursing and Triage Documentation Reviewed and Agree: Yes Does patient meet sepsis criteria?: No System Inflammatory Response Syndrome: Not Applicable Sepsis Protocol: For patient's 13 years and over: Temp is 96.8 and below OR 101 and greater Pulse >90 BPM Resp >20/minute Acutely Altered Mental Status Are patient's symptoms suggestive of a new infection, such as: -Pneumonia -Skin, Soft Tissue -Endocarditis -UTI -Bone, Joint Infection -Implantable Device -Acute Abdominal Infection -Wound Infection -Meningitis -Blood Stream Catheter Infection -Unknown GI Complaint Exam - Vomiting/Diarrhea Complaint/Exam Onset/Duration: 1 day Episodes of Vomiting over last 24 Hours: 5 Episodes of Diarrhea Over Last 24 Hours: 10 Initial Severity: Severe Current Severity: Moderate Character of Vomiting: Reports: Non-bilious Character of Diarrhea: Reports: Watery Aggravating: Reports: Food Alleviating: Reports: None Associated Signs and Symptoms: Reports: Abdominal pain. Denies: Dizziness, Light-headedness, Melena, Hematemesis, Fever, Cramping Non-GI Risk Factors: Reports: None Surgical Obstruction Risk Factors: Reports: None Related Surgical History: Reports: None Abdominal Findings: Present: None Kussmaul Respirations Present: No Differential Diagnoses: Viral Gastroenteritis Review of Systems - Review Of Systems Constitutional: Reports: No symptoms Eyes: Reports: No symptoms Ears, Nose, Mouth, Throat: Reports: No symptoms Respiratory: Reports: No symptoms Cardiac: Reports: No symptoms GI: Reports: Abdominal pain, Nausea, Poor appetite, Vomiting : Reports: No symptoms Musculoskeletal: Reports: No symptoms Skin: Reports: No symptoms Neurological: Reports: Anxiety Endocrine: Reports: No symptoms Hematologic/Lymphatic: Reports: No symptoms All Other Systems: Reviewed and Negative Past Medical History - Past Medical History Previously Healthy: Yes Endocrine: Reports: None Cardiovascular: Reports: None Respiratory: Reports: None Hematological: Reports: None Gastrointestinal: Reports: Gallstones Genitourinary: Reports: None Neuro/Psych: Reports: Migraine, Other (Sycope ) Musculoskeletal: Reports: Other ( FX RIGHT WRIST) Cancer: Reports: None Last Menstrual Period: 1 week - Surgical History General Surgical History: Reports: Cholecystectomy - Family History Family History: Reports: None - Social History Smoking Status: Current every day smoker, Heavy tobacco smoker Hx Substance Use: No Alcohol Screening: Occasionally - Immunizations Tetanus Shot up to Date: Yes Physical Exam - Physical Exam Appearance: Ill-appearing Ill-appearing: Mild Eyes: FLETCHER, EOMI, Conjunctiva clear ENT: Ears normal, Nose normal, Oropharynx normal Respiratory: Airway patent, Breath sounds clear, Breath sounds equal, Respirations nonlabored Cardiovascular: RRR, Pulses normal, No rub, No murmur GI/: Soft, No masses, Bowel sounds normal, No Organomegaly, Tender (miminal, with no rebound tenderness on deep palpation on the right lower quadrant ) Musculoskeletal: Normal strength, ROM intact, No edema, No calf tenderness Skin: Warm, Dry, Normal color Neurological: Sensation intact, Motor intact, Reflexes intact, Cranial nerves intact, Alert, Oriented Psychiatric: Affect appropriate, Mood appropriate Re-Evaluation - Re-Evaluation Time of Re-Evaluation: 20:46 Status: Improved Pain Level: much improved Critical Care Note - Critical Care Note Total Time (mins): 0 Course - Course Hematology/Chemistry: 05/14/18 19:50 05/14/18 19:50 Orders, Labs, Meds: Lab Review 05/14/18 05/14/18 05/14/18 19:50 19:50 19:50 WBC 12.81 H RBC 4.03 L Hgb 12.1 Hct 35.8 L MCV 88.8 MCH 30.0 MCHC 33.8 RDW Coeff of Nettie 12.3 Plt Count 173 Immature Gran % (Auto) 0.3 Neut % (Auto) 55.2 Lymph % (Auto) 38.3 [place] % (Auto) 3.9 Eos % (Auto) 2.1 Baso % (Auto) 0.2 Immature Gran # (Auto) 0.0 Neut # (Auto) 7.1 H Lymph # (Auto) 4.9 H [place] # (Auto) 0.5 Eos # (Auto) 0.3 Baso # (Auto) 0.0 Sodium 139.9 Potassium 3.44 L Chloride 108.0 H Carbon Dioxide 23.4 Anion Gap 11.94 BUN 14.5 Creatinine 0.77 Estimated GFR (MDRD) 91.00 BUN/Creatinine Ratio 18.83 Glucose 89.4 Calcium 8.62 Total Bilirubin 0.94 AST 23.0 ALT 11.7 Alkaline Phosphatase 63.1 Total Protein 6.77 Albumin 4.48 Globulin 2.29 Albumin/Globulin Ratio 1.95 Amylase 58.5 Lipase 56.3 Serum , Qual Negative Urine Color Urine Clarity Urine pH Ur Specific [place] Urine Protein Urine Glucose (UA) Urine Ketones Urine Blood Urine Nitrite Urine Bilirubin Urine Urobilinogen Ur Leukocyte Esterase Urine Microscopic RBC Urine Microscopic WBC Ur Squamous Epith Cells Urine Mucus 05/14/18 19:55 WBC RBC Hgb Hct MCV MCH MCHC RDW Coeff of Nettie Plt Count Immature Gran % (Auto) Neut % (Auto) Lymph % (Auto) [place] % (Auto) Eos % (Auto) Baso % (Auto) Immature Gran # (Auto) Neut # (Auto) Lymph # (Auto) [place] # (Auto) Eos # (Auto) Baso # (Auto) Sodium Potassium Chloride Carbon Dioxide Anion Gap BUN Creatinine Estimated GFR (MDRD) BUN/Creatinine Ratio Glucose Calcium Total Bilirubin AST ALT Alkaline Phosphatase Total Protein Albumin Globulin Albumin/Globulin Ratio Amylase Lipase Serum , Qual Urine Color Yellow Urine Clarity Slightly Urine pH 7.5 Ur Specific [place] 1.020 Urine Protein Trace Urine Glucose (UA) Negative Urine Ketones Negative Urine Blood 1+ Urine Nitrite Negative Urine Bilirubin Negative Urine Urobilinogen 1.0 Ur Leukocyte Esterase Negative Urine Microscopic RBC 2-5 Urine Microscopic WBC 0-2 Ur Squamous Epith Cells 10-20 Urine Mucus 2+ Orders Category Date Time Status ED IV/MEDIPORT/POWERPORT .ONCE EMERGENCY 05/14/18 19:40 Active AMYLASE Stat LAB 05/14/18 19:50 Completed CBC W/ AUTO DIFF Stat LAB 05/14/18 19:50 Completed COMPREHENSIVE METABOLIC PANEL Stat LAB 05/14/18 19:50 Completed LIPASE Stat LAB 05/14/18 19:50 Completed SERUM Stat LAB 05/14/18 19:50 Completed URINALYSIS C & S IF INDICATED Stat LAB 05/14/18 19:55 Completed 0.9 % Sodium Chloride [Saline Flush] MEDS 05/14/18 19:40 Ordered 1 syr IVF PRN PRN Dicyclomine Inj [Bentyl] MEDS 05/14/18 19:56 Discontinued 20 mg IM ONCE STA Ondansetron HCl/Pf [Zofran 4 mg/2 ml] MEDS 05/14/18 19:40 Discontinued 4 mg IVP ONCE STA Ringers Lactated Solution [Lactated Ringers] 1,000 ml MEDS 05/14/18 19:40 Discontinued IV BOLUS Medications Generic Name Dose Route Start Last Admin Trade Name Freq PRN Reason Stop Dose Admin Sodium Chloride 1 syr 05/14/18 19:40 Saline Flush IVF PRN PRN To flush IV Discontinued Medications Generic Name Dose Route Start Last Admin Trade Name Freq PRN Reason Stop Dose Admin Dicyclomine HCl 20 mg 05/14/18 19:56 05/14/18 20:01 Bentyl IM 05/14/18 19:57 20 mg ONCE STA Administration Lactated Ringer's 1,000 mls @ 1,000 mls/hr 05/14/18 19:40 05/14/18 19:58 Lactated Ringers IV 05/14/18 20:39 1,000 mls/hr BOLUS STA Administration Ondansetron HCl 4 mg 05/14/18 19:40 05/14/18 19:58 Zofran 4 Mg/2 Ml IVP 05/14/18 19:41 4 mg ONCE STA Administration Vital Signs: Temp Pulse Resp BP Pulse Ox 05/14/18 19:30 98.6 F 88 16 128/83 99 Departure - Departure Time of Disposition: 20:47 Disposition: HOME SELF-CARE Discharge Problem: Abdominal pain, Gastroenteritis Instructions: Gastroenteritis (ED) Condition: Stable Pt referred to PMD for follow-up: Yes IPMP verified?: No Additional Instructions: Push fluids Follow up with PCP in 3 days take nausea medications and Bentyl as needed for pain. Prescriptions: Dicyclomine HCl [Bentyl] 10 mg PO TID PRN #20 capsule PRN Reason: Abdominal Pain Ondansetron [Zofran Odt] 4 mg PO Q8H #12 tab.rapdis Allergies/Adverse Reactions: Allergies No Known Allergies Allergy (Verified 05/14/18 19:33) Home Medications: Ambulatory Orders Dicyclomine HCl [Bentyl] 10 mg PO TID PRN #20 capsule 05/14/18 Ondansetron [Zofran Odt] 4 mg PO Q8H #12 tab.rapdis 05/14/18 Disposition Discussed With: Patient, Family
[2018-05-14] MEDS ORDERED: BENTYL IM STA (19:56)
== END 2018-05-14 20:54 | disposition home or self-care (01) ==
LOC: ED 19:30
DX: K52.9 Noninfective gastroenteritis and colitis, unspecified (principal); R10.9 Unspecified abdominal pain; F17.210 Nicotine dependence, cigarettes, uncomplicated
CPT/HCPCS: 36415; 80053; 81001; 82150; 83690; 84703; 85025; 96360; 96361; 96372; 96374; 96375; 99283

== ENCOUNTER 2018-08-15 10:45 | Emergency (ER) ==
[2018-08-15 10:53] VITALS: BP 113/69; TEMP 98.4; BMI 24.7
[2018-08-15] MEDS ORDERED: ZOFRAN 4 MG/2 ML IVP STA (11:17)
[2018-08-15] MEDS ORDERED: LACTATED RINGERS 1,000 ML IV STA (11:17)
--- NOTE | 2018-08-15 11:19 | ED.PDOC ---
General ED Provider: Dr. RITCHIE RODRIGUEZ Chief Complaint: Abdominal Pain Stated Complaint: 2 day history of abdomial pain mostly lower worse on the right. Vomiting x 5 this morning. Pain now gone. Time Seen by Physician: 11:18 Mode of Arrival: Walk-In Information Source: Patient Primary Care Provider: SOFIE NOVA Nursing and Triage Documentation Reviewed and Agree: Yes Does patient meet sepsis criteria?: No System Inflammatory Response Syndrome: Not Applicable Sepsis Protocol: For patient's 13 years and over: Temp is 96.8 and below OR 101 and greater Pulse >90 BPM Resp >20/minute Acutely Altered Mental Status Are patient's symptoms suggestive of a new infection, such as: -Pneumonia -Skin, Soft Tissue -Endocarditis -UTI -Bone, Joint Infection -Implantable Device -Acute Abdominal Infection -Wound Infection -Meningitis -Blood Stream Catheter Infection -Unknown GI Complaint Exam - Abdominal Pain Complaint/Exam Onset: Gradual Duration: 2 days Symptoms Are: Resolved Timing: Constant Initial Severity: Severe Current Severity: None Location of Pain: RLQ, LLQ Radiates To: Denies: Chest, Back, Flank, LLQ, RLQ, Inguinal Character: Reports: Cramping Aggravating: Reports: Food Alleviating: Reports: Vomiting Associated Signs and Symptoms: Reports: Nausea, Vomiting AAA Risk Factors: Reports: None Cardiac Risk Factors: Reports: None Ectopic Risk Factors: Reports: None Ovarian Torsion Risk Factors: Reports: None Surgical Obstruction Risk Factors: Reports: None Patient Rh Status: Unknown Abdominal Findings: Present: [place]Bur[place]'s Point tender Differential Diagnoses: Appendicitis, Bowel Obstruction Review of Systems - Review Of Systems Constitutional: Reports: No symptoms Eyes: Reports: No symptoms Ears, Nose, Mouth, Throat: Reports: No symptoms Respiratory: Reports: No symptoms Cardiac: Reports: No symptoms GI: Reports: Abdominal pain, Nausea, Vomiting : Reports: No symptoms Musculoskeletal: Reports: No symptoms Skin: Reports: No symptoms Neurological: Reports: No symptoms Endocrine: Reports: No symptoms Hematologic/Lymphatic: Reports: No symptoms All Other Systems: Reviewed and Negative Past Medical History - Past Medical History Previously Healthy: Yes Endocrine: Reports: None Cardiovascular: Reports: None Respiratory: Reports: None Hematological: Reports: None Gastrointestinal: Reports: Gallstones Genitourinary: Reports: None Neuro/Psych: Reports: Migraine, Other (Sycope ) Musculoskeletal: Reports: Other ( FX RIGHT WRIST) Cancer: Reports: None Last Menstrual Period: Spotting yesterday. - Surgical History General Surgical History: Reports: Cholecystectomy - Family History Family History: Reports: None - Social History Smoking Status: Current every day smoker, Heavy tobacco smoker Hx Substance Use: No Alcohol Screening: None Physical Exam - Physical Exam Appearance: Ill-appearing Ill-appearing: Mild Pain Distress: None Eyes: FLETCHER, EOMI, Conjunctiva clear ENT: Ears normal, Nose normal, Oropharynx normal Respiratory: Airway patent, Breath sounds clear, Breath sounds equal, Respirations nonlabored Cardiovascular: RRR, Pulses normal, No rub, No murmur GI/: Soft, No masses, Bowel sounds normal, No Organomegaly, Tender Musculoskeletal: Normal strength, ROM intact, No edema, No calf tenderness Skin: Warm, Dry, Normal color Neurological: Sensation intact, Motor intact, Reflexes intact, Cranial nerves intact, Alert, Oriented Psychiatric: Affect appropriate, Mood appropriate Interpretation - Radiology Interpretation Radiology Interpretation By: Radiologist Radiology Results: Positive (ovarian cyst mearugint 5 cm cannot rule out Torsion on the right overy) Exam Interpreted: CT Scan Re-Evaluation - Re-Evaluation Time of Re-Evaluation: 13:00 Status: Improved Vital Signs Stable: Yes Pain Level: none Appearance: NAD Physician Notification - Case Discussed Physician Notified: Dr neri Degroot [facility] ER Time of Notification: 12:45 (OBGYN not availble in [facility] ) Physician Notified: Dr Marty hardin ER Time of Notification: 12:54 (Accepted may come by private car) Critical Care Note - Critical Care Note Total Time (mins): 0 Course - Course Hematology/Chemistry: 08/15/18 11:23 08/15/18 11:23 Orders, Labs, Meds: Lab Review 08/15/18 08/15/18 08/15/18 11:23 11:23 11:23 WBC 8.22 RBC 3.98 L Hgb 12.2 Hct 36.0 L MCV 90.5 MCH 30.7 MCHC 33.9 RDW Coeff of Nettie 12.2 Plt Count 143 Immature Gran % (Auto) 0.2 Neut % (Auto) 56.0 Lymph % (Auto) 36.7 [place] % (Auto) 4.4 Eos % (Auto) 2.3 Baso % (Auto) 0.4 Immature Gran # (Auto) 0.0 Neut # (Auto) 4.6 Lymph # (Auto) 3.0 [place] # (Auto) 0.4 Eos # (Auto) 0.2 Baso # (Auto) 0.0 Sodium 140.2 Potassium 3.75 Chloride 106.5 Carbon Dioxide 25.3 Anion Gap 12.15 BUN 18.8 H Creatinine 0.82 Estimated GFR (MDRD) 85.00 BUN/Creatinine Ratio 22.92 Glucose 85.8 Calcium 8.48 Total Bilirubin 0.69 AST 30.1 ALT 14.1 Alkaline Phosphatase 56.3 Total Protein 6.54 Albumin 4.09 Globulin 2.45 Albumin/Globulin Ratio 1.66 Amylase 48.8 Lipase 33.2 Serum , Qual Negative Urine Color Urine Clarity Urine pH Ur Specific Russell Urine Protein Urine Glucose (UA) Urine Ketones Urine Blood Urine Nitrite Urine Bilirubin Urine Urobilinogen Ur Leukocyte Esterase Urine Microscopic RBC Urine Microscopic WBC Ur Squamous Epith Cells 08/15/18 11:40 WBC RBC Hgb Hct MCV MCH MCHC RDW Coeff of Nettie Plt Count Immature Gran % (Auto) Neut % (Auto) Lymph % (Auto) [place] % (Auto) Eos % (Auto) Baso % (Auto) Immature Gran # (Auto) Neut # (Auto) Lymph # (Auto) [place] # (Auto) Eos # (Auto) Baso # (Auto) Sodium Potassium Chloride Carbon Dioxide Anion Gap BUN Creatinine Estimated GFR (MDRD) BUN/Creatinine Ratio Glucose Calcium Total Bilirubin AST ALT Alkaline Phosphatase Total Protein Albumin Globulin Albumin/Globulin Ratio Amylase Lipase Serum , Qual Urine Color Yellow Urine Clarity Clear Urine pH 6.0 Ur Specific Russell >=1.030 Urine Protein Negative Urine Glucose (UA) Negative Urine Ketones Negative Urine Blood 1+ Urine Nitrite Negative Urine Bilirubin Negative Urine Urobilinogen 1.0 Ur Leukocyte Esterase Negative Urine Microscopic RBC 2-5 Urine Microscopic WBC 2-5 Ur Squamous Epith Cells Not present Orders Category Date Time Status ED IV/MEDIPORT/POWERPORT .ONCE EMERGENCY 08/15/18 11:17 Active AMYLASE Stat LAB 08/15/18 11:23 Completed CBC W/ AUTO DIFF Stat LAB 08/15/18 11:23 Completed COMPREHENSIVE METABOLIC PANEL Stat LAB 08/15/18 11:23 Completed LIPASE Stat LAB 08/15/18 11:23 Completed SERUM Stat LAB 08/15/18 11:23 Completed URINALYSIS C & S IF INDICATED Stat LAB 08/15/18 11:40 Completed 0.9 % Sodium Chloride [Saline Flush] MEDS 08/15/18 11:17 Active 1 syr IVF PRN PRN Ondansetron HCl/Pf [Zofran 4 mg/2 ml] MEDS 08/15/18 11:17 Discontinued 4 mg IVP ONCE STA Ringers Lactated Solution [Lactated Ringers] 1,000 ml MEDS 08/15/18 11:[address] ABD/PEL WO RENAL STONE PROT Stat RADS 08/15/18 11:20 Completed Medications Generic Name Dose Route Start Last Admin Trade Name Freq PRN Reason Stop Dose Admin Sodium Chloride 1 syr 08/15/18 11:17 08/15/18 11:39 Saline Flush IVF 1 syr PRN PRN Administration To flush IV Discontinued Medications Generic Name Dose Route Start Last Admin Trade Name Freq PRN Reason Stop Dose Admin Lactated Ringer's 1,000 mls @ 1,000 mls/hr 08/15/18 11:17 08/15/18 11:40 Lactated Ringers IV 08/15/18 12:16 1,000 mls/hr BOLUS STA Administration Ondansetron HCl 4 mg 08/15/18 11:17 08/15/18 11:40 Zofran 4 Mg/2 Ml IVP 08/15/18 11:18 4 mg ONCE STA Administration Vital Signs: Temp Pulse Resp BP Pulse Ox 08/15/18 10:46 98.4 F 81 20 113/69 96 Departure - Departure Time of Disposition: 12:57 Disposition: TSF SHORT-TRM HOSP Discharge Problem: Abdominal pain Ovarian cyst Qualifiers: Laterality: right Qualified Code(s): N83.201 - Unspecified ovarian cyst, right side Instructions: Ovarian Cyst (ED) Condition: Stable Pt referred to PMD for follow-up: Yes IPMP verified?: No Additional Instructions: Follow up with [facility] for Pelvic ultrasound to rule out Torsion of ovary Prescriptions: Ibuprofen [Motrin] 600 mg PO Q6H PRN #30 tablet PRN Reason: Analgesia Allergies/Adverse Reactions: Allergies No Known Allergies Allergy (Verified 08/15/18 10:53) Home Medications: Ambulatory Orders Ibuprofen [Motrin] 600 mg PO Q6H PRN #30 tablet 08/15/18 Medroxyprogesterone Acetate [Depo-Provera] 150 mg IM DIRECTED 08/15/18 Disposition Discussed With: Patient
--- NOTE | 2018-08-15 12:35 | CT ---
EXAM: CT abdomen pelvis without contrast HISTORY: Right lower quadrant pain COMPARISON: 12/26/2017 TECHNIQUE: CT abdomen pelvis performed without intravenous contrast. Coronal and sagittal reformatt ed images obtained. FINDINGS: Mild right basilar dependent atelectasis and/or scarring. No free air. No acute abnormal ities of the bones. Heart normal in size. Evaluation organ parenchyma limited without contrast. Li eric appears normal. Patient status post cholecystectomy. Pancreas unremarkable. Spleen unremarkabl e. Adrenals unremarkable. No hydronephrosis or nephrolithiasis. No calculi visualized in the edith l course of the ureters. Bladder only minimally distended and poorly evaluated, grossly unremarkable . Tampon noted. Probable right ovarian cyst measuring up to 5 cm, poorly evaluated on noncontrast C T. Enlargement of the right ovary is considered less likely. Uterus unremarkable. Tampon noted. A tushar normal in caliber. No lymphadenopathy or ascites. Minimal fat-containing periumbilical hernia. Stomach unremarkable. No dilated loops small bowel. Scattered fluid-filled loops small bowel scat tered fluid levels may relate to enteritis. Appendix appears normal. Colon unremarkable. IMPRESSION: 1. Probable right ovarian cyst measuring 5.0 cm, poorly evaluated on noncontrast CT. Enlargement of the right ovary (which can be seen in ovarian torsion) is considered less likely. Recommend correla tion with transabdominal/transvaginal pelvic ultrasound. 2. Possible mild enteritis. Recommend clinical correlation. 3. No hydronephrosis or nephrolithiasis. Findings called to Dr. Chavez 12:21 p.m. 08/15/2018
== END 2018-08-15 13:35 | disposition short-term general hospital (02) ==
LOC: ED 10:45
DX: N83.201 Unspecified ovarian cyst, right side (principal); R10.31 Right lower quadrant pain; R10.32 Left lower quadrant pain; R11.2 Nausea with vomiting, unspecified; F17.210 Nicotine dependence, cigarettes, uncomplicated
CPT/HCPCS: 36415; 80053; 81001; 82150; 83690; 84703; 85025; 96361; 96374; 99285

== ENCOUNTER 2018-10-12 17:56 | Emergency (ER) ==
[2018-10-12 18:01] VITALS: BP 119/84; TEMP 98.5; BMI 25.3
[2018-10-12] MEDS ORDERED: PHENERGAN 25 MG/ML VIAL IM STA (18:45)
[2018-10-12] MEDS ORDERED: DEMEROL 50 MG/ML VIAL IM STA (18:45)
--- NOTE | 2018-10-12 19:39 | CT ---
EXAM: CT scan abdomen pelvis without contrast HISTORY: Abdominal pain vomiting COMPARISON: CT scan pelvis 10/31/2016 FINDINGS: Contiguous axial images obtained through the abdomen pelvis without contrast Sheth 3-mm co llimation. Sagittal and coronal reconstructions were imaged and reviewed.. There is minimal depende nt atelectasis at the right lung base. There has been a prior cholecystectomy. The liver, pancreas, spleen and adrenal glands have normal unenhanced CT appearance. The kidneys are morphologically nor mal.. The abdominal aorta is normal in course and caliber. There is normal retrocecal appendix.. T here is a small amount free fluid in the dependent pelvis.. There is 1.6 cm right adnexal cyst. Fol licles are seen in the left ovary.. There are prominent air and fluid filled loops of small bowel w hich may be related to ileus versus gastroenteritis.. The bladder is small volumed limiting evaluatio n. Bone windows reveals no it is of lytic or blastic lesions. IMPRESSION: Status post cholecystectomy. Prominent small bowel which may be related to ileus versus gastroenteritis. No CT evidence of appendicitis. Right adnexal cyst with small amount free fluid in the dependent pelvis.
--- NOTE | 2018-10-12 19:46 | ED.PDOC ---
General ED Provider: Dr. AQUILINO MATHEW-ER Chief Complaint: Abdominal Pain Stated Complaint: jessica had vomiting and diarrhea Time Seen by Physician: 17:55 Mode of Arrival: Walk-In Information Source: Patient Exam Limitations: No limitations Primary Care Provider: SOFIE NOVA Nursing and Triage Documentation Reviewed and Agree: Yes Does patient meet sepsis criteria?: No System Inflammatory Response Syndrome: Not Applicable Sepsis Protocol: For patient's 13 years and over: Temp is 96.8 and below OR 101 and greater Pulse >90 BPM Resp >20/minute Acutely Altered Mental Status Are patient's symptoms suggestive of a new infection, such as: -Pneumonia -Skin, Soft Tissue -Endocarditis -UTI -Bone, Joint Infection -Implantable Device -Acute Abdominal Infection -Wound Infection -Meningitis -Blood Stream Catheter Infection -Unknown GI Complaint Exam - Vomiting/Diarrhea Complaint/Exam Onset/Duration: 24 hrs Initial Severity: Mild Current Severity: Mild Character of Diarrhea: Reports: Watery Aggravating: Reports: None Alleviating: Reports: None Associated Signs and Symptoms: Reports: Cramping Recent Positive Test: No Use of Oral Contraceptives: No Use of Depoprovera: No Compliant With Contraceptive Use: No Non-GI Risk Factors: Reports: None Surgical Obstruction Risk Factors: Reports: Prior abdominal surgery Related Surgical History: Reports: Cholecystectomy Kussmaul Respirations Present: No Differential Diagnoses: Viral Gastroenteritis, UTI Review of Systems - Review Of Systems Constitutional: Reports: No symptoms Eyes: Reports: No symptoms Ears, Nose, Mouth, Throat: Reports: No symptoms Respiratory: Reports: No symptoms Cardiac: Reports: No symptoms GI: Reports: Abdominal pain, Diarrhea, Nausea, Vomiting : Reports: No symptoms Musculoskeletal: Reports: No symptoms Skin: Reports: No symptoms Neurological: Reports: No symptoms Endocrine: Reports: No symptoms Hematologic/Lymphatic: Reports: No symptoms All Other Systems: Reviewed and Negative Past Medical History - Past Medical History Previously Healthy: Yes Endocrine: Reports: None Cardiovascular: Reports: None Respiratory: Reports: None Hematological: Reports: None Gastrointestinal: Reports: Gallstones Genitourinary: Reports: None Neuro/Psych: Reports: Migraine, Other (Sycope ) Musculoskeletal: Reports: Other ( FX RIGHT WRIST) Cancer: Reports: None Last Menstrual Period: 4 weeks ago - Surgical History General Surgical History: Reports: Cholecystectomy - Family History Family History: Reports: None - Social History Smoking Status: Current every day smoker, Heavy tobacco smoker Hx Substance Use: No Alcohol Screening: None Physical Exam - Physical Exam Appearance: Well-appearing Pain Distress: Mild Eyes: FLETCHER, EOMI, Conjunctiva clear ENT: Ears normal, Nose normal, Oropharynx normal Neck: Supple Respiratory: Airway patent, Breath sounds clear, Breath sounds equal, Respirations nonlabored Cardiovascular: RRR, Pulses normal, No rub, No murmur GI/: Soft, Nontender, No masses, Bowel sounds normal, No Organomegaly Musculoskeletal: Normal strength, ROM intact, No edema, No calf tenderness Skin: Warm, Dry, Normal color Neurological: Sensation intact, Motor intact, Reflexes intact, Cranial nerves intact, Alert, Oriented Psychiatric: Affect appropriate, Mood appropriate Interpretation - Radiology Interpretation Radiology Interpretation By: Radiologist Radiology Results: Negative Exam Interpreted: CT Scan Re-Evaluation - Re-Evaluation Time of Re-Evaluation: 19:45 Status: Improved Vital Signs Stable: Yes Pain Level: 0 Appearance: NAD Lungs: Clear Skin: Warm and Dry Neuro: Alert and Oriented X3 CV: RRR Critical Care Note - Critical Care Note Total Time (mins): 0 Course - Course Hematology/Chemistry: 10/12/18 18:55 10/12/18 18:55 Orders, Labs, Meds: Lab Review 10/12/18 10/12/18 10/12/18 18:40 18:55 18:55 WBC 15.20 H RBC 4.58 Hgb 13.9 Hct 40.8 MCV 89.1 MCH 30.3 MCHC 34.1 RDW Coeff of Nettie 12.3 Plt Count 156 Immature Gran % (Auto) 0.2 Neut % (Auto) 72.2 Lymph % (Auto) 21.1 [place] % (Auto) 4.7 Eos % (Auto) 1.6 Baso % (Auto) 0.2 Immature Gran # (Auto) 0.0 Neut # (Auto) 11.0 H Lymph # (Auto) 3.2 [place] # (Auto) 0.7 Eos # (Auto) 0.2 Baso # (Auto) 0.0 ESR Pending Sodium 137.2 Potassium 4.02 Chloride 106.6 Carbon Dioxide 23.7 Anion Gap 10.92 BUN 14.9 Creatinine 0.86 Estimated GFR (MDRD) 80.00 BUN/Creatinine Ratio 17.32 Glucose 95.6 Calcium 9.04 Total Bilirubin 0.73 AST 26.1 ALT 17.7 Alkaline Phosphatase 57.4 Total Protein 7.51 Albumin 4.61 Globulin 2.90 Albumin/Globulin Ratio 1.58 Amylase 57.1 Lipase 40.6 Serum , Qual Urine Color Yellow Urine Clarity Slightly Urine pH 5.5 Ur Specific [place] >=1.030 Urine Protein Negative Urine Glucose (UA) Negative Urine Ketones Negative Urine Blood Trace-intact Urine Nitrite Negative Urine Bilirubin Negative Urine Urobilinogen 0.2 Ur Leukocyte Esterase Negative Urine Microscopic RBC 0-2 Ur Squamous Epith Cells 5-10 10/12/18 18:55 WBC RBC Hgb Hct MCV MCH MCHC RDW Coeff of Nettie Plt Count Immature Gran % (Auto) Neut % (Auto) Lymph % (Auto) [place] % (Auto) Eos % (Auto) Baso % (Auto) Immature Gran # (Auto) Neut # (Auto) Lymph # (Auto) [place] # (Auto) Eos # (Auto) Baso # (Auto) ESR Sodium Potassium Chloride Carbon Dioxide Anion Gap BUN Creatinine Estimated GFR (MDRD) BUN/Creatinine Ratio Glucose Calcium Total Bilirubin AST ALT Alkaline Phosphatase Total Protein Albumin Globulin Albumin/Globulin Ratio Amylase Lipase Serum , Qual Negative Urine Color Urine Clarity Urine pH Ur Specific [place] Urine Protein Urine Glucose (UA) Urine Ketones Urine Blood Urine Nitrite Urine Bilirubin Urine Urobilinogen Ur Leukocyte Esterase Urine Microscopic RBC Ur Squamous Epith Cells Orders Category Date Time Status AMYLASE Stat LAB 10/12/18 18:55 Completed CBC W/ AUTO DIFF Stat LAB 10/12/18 18:55 Results COMPREHENSIVE METABOLIC PANEL Stat LAB 10/12/18 18:55 Completed ESR Stat LAB 10/12/18 18:55 Results LIPASE Stat LAB 10/12/18 18:55 Completed SERUM Stat LAB 10/12/18 18:55 Completed URINALYSIS C & S IF INDICATED Stat LAB 10/12/18 18:40 Completed Meperidine HCl/Pf [Demerol 50 mg/ml Vial] MEDS 10/12/18 18:45 Discontinued 50 mg IM ONCE STA Promethazine HCl [Phenergan 25 mg/ml Vial] MEDS 10/12/18 18:45 Discontinued 25 mg IM ONCE STA CT ABDOMEN/PELVIS WO CONTRAST Stat RADS 10/12/18 18:45 Completed Medications Discontinued Medications Generic Name Dose Route Start Last Admin Trade Name Freq PRN Reason Stop Dose Admin Meperidine HCl 50 mg 10/12/18 18:45 10/12/18 18:51 Demerol 50 Mg/Ml Vial IM 10/12/18 18:46 50 mg ONCE STA Administration Promethazine HCl 25 mg 10/12/18 18:45 10/12/18 18:51 Phenergan 25 Mg/Ml Vial IM 10/12/18 18:46 25 mg ONCE STA Administration Vital Signs: Temp Pulse Resp BP Pulse Ox 10/12/18 17:57 98.5 F 99 H 20 119/84 98 Departure - Departure Time of Disposition: 19:45 Disposition: HOME SELF-CARE Discharge Problem: Enteritis Instructions: Enteritis (ED) Condition: Good Pt referred to PMD for follow-up: Yes IPMP verified?: No Additional Instructions: f/u withpcp to discuss ovarian cyst Allergies/Adverse Reactions: Allergies No Known Allergies Allergy (Verified 10/12/18 18:01) Home Medications: Ambulatory Orders 1 [No Reported Medications] 10/12/18 Disposition Discussed With: Patient, Family
== END 2018-10-12 19:50 | disposition home or self-care (01) ==
LOC: ED 17:56
DX: K52.9 Noninfective gastroenteritis and colitis, unspecified (principal); F17.210 Nicotine dependence, cigarettes, uncomplicated
CPT/HCPCS: 36415; 80053; 81001; 82150; 83690; 84703; 85025; 85651; 96372; 99283